=== PATIENT | male | born 1965 | race African-American/Black ===

== ENCOUNTER 2016-12-09 09:38 | Emergency (ER) | payer MEDICAID ==
[~2016-12-09 09:38] MED LIST: AMLODIPINE PO; COMPAZINE10 MG PO; CYCLOBENZAPRINE10 M1 PO; DEPRESSION MED; FLEXERIL10 MG PO; HYDROCODON-ACE1 EA16 PO; IBUPROFEN200 M3 PO; LEVAQUIN500 M1 PO; MILK OF MA400 MG/5 M PO; MIRALAX17 G1 PO; MIRALAX17 G2 PO; NAPROSYN500 M1 PO; NORCO 10/3251 TA1 PO; NORCO 5-325 TA1 EACH PO; NORCO 5/3251 TA2 PO; NORCO 5/3251 TAB PO; NORVASC10 M1 PO; NORVASC10 M2 PO; NORVASC10 MG PO; ONE DAILY MULT1 EAC2 PO; OXYCODONE/APAP PO; PEPCID40 MG PO; PERCOCET 5-3251 EACH PO; PERCOCET 5/3251 TAB PO; PRILOSEC OTC20 M1 PO; PRILOSEC40 MG PO; PROTONIX40 M2 PO; PROZAC20 M1 PO; PROZAC20 M3 PO; ROXICODONE5 M2 PO; SENOKOT-S TABL1 EACH PO; SUCRALFATE1 GM/10 ML PO; TYLENOL325 M2 PO; ULTRAM50 MG PO; VITAMIN B-1100 M3 PO; ZANTAC 7575 M1 PO; ZITHROMAX250 M1 PO; ZOFRAN ODT4 MG PO; ZOFRAN4 M2 PO
[2016-12-13] MEDS ORDERED: IBUPROFEN400 M1 PO (11:09)
[2017-05-16] MEDS ORDERED: ZOFRAN ODT4 MG PO (13:34)
== END 2016-12-09 13:00 | disposition left against medical advice (07) ==
LOC: EDMED 09:38
DX: Z53.21 Procedure and treatment not carried out due to patient leaving prior to being seen by health care provider (principal)

== ENCOUNTER 2016-12-13 12:08 | Emergency (ER) | payer MEDICAID ==
[2016-12-13 11:44] LABS: URINE BILIRUBIN NEGATIVE (NEG); URINE BLOOD NEGATIVE (NEG); URINE GLUCOSE (UA) NEGATIVE (NEG); URINE KETONE SMALL (NEG); URINE LEUKOCYTE ESTERASE POSITIVE (NEG); URINE NITRITE NEGATIVE (NEG); URINE PROTEIN SMALL (NEG); URINE SPECIFIC GRAVITY 1.025 (1.003-1.030)
[2016-12-13 11:45] LABS: URINE APPEARANCE CLEAR; URINE COLOR DARK YELLOW
[2016-12-13 11:51] LABS: URINE MUCUS 3+
[2016-12-13 11:53] LABS: URINE RBC 0-2 /[HPF] (0-5); URINE WBC 0-3 /[HPF] (0-5)
[2016-12-13 11:54] LABS: BASO % 0.5 % (0-2); EOS % 2.3 % (0-7); EOSINOPHIL ABSOLUTE COUNT 0.1 tho/cmm (0.0-0.7); HCT-HEMATOCRIT 43.5 % (36.0-53.5); HGB-HEMOGLOBIN 14.8 gm/dl (13.5-17.0); LYMPH ABSOLUTE COUNT 1.4 tho/cmm (0.8-4.5); MCH (MEAN CORPUSCULAR HGB) 30.8 pg (28.0-32.0); MCV (MEAN CELL VOLUME) 90.6 fl (82.0-96.0); MEAN PLATELET VOLUME 10.6 cmc (9.4-12.4); MONO % 9.3 % (0-12); MONOCYTE ABSOLUTE COUNT 0.4 tho/cmm (0.0-1.2); NEUTROPHIL ABSOLUTE COUNT 2.5 tho/cmm (1.6-8.0); NEUTROPHIL-AUTOMATED 2.5 tho/cmm (1.6-8.0); NEUTROPHILS % 55.9 % (40-80); PLATELET COUNT 168 tho/cmm (150-450); WHITE BLOOD COUNT 4.4 tho/cmm (4.0-10.0)
[2016-12-13 12:06] LABS: ALB/GLOB RATIO 0.9 (0.8-2.0); ALBUMIN 3.6 g/dl (3.5-5.0); ALKALINE PHOSPHATASE 75 U/L (33-138); ALT/SGPT 111 U/L (12-78); BILIRUBIN,TOTAL 0.3 mg/dl (0.0-1.5); BLOOD UREA NITROGEN 14 mg/dl (6-24); CALCIUM 8.8 mg/dl (8.5-10.5); CARBON DIOXIDE-VENOUS 31 mmol/L (22-32); CHLORIDE 109 mmol/l (96-110); CREATININE 0.95 mg/dl (0.60-1.30); GLUCOSE 141 mg/dL (70-110); LIPASE 172 U/L (73-393); SODIUM 143 mmol/L (135-145); eGFR VALUE FOR BLACK >90 mL/Min
[~2016-12-13 12:08] MED LIST changes: +IBUPROFEN400 M1 PO
[2016-12-13 12:28] LABS: ANION GAP 7 mmol/L (0-20); AST/SGOT 73 U/L (10-40); POTASSIUM 4.4 mmol/L (3.7-5.1)
[2016-12-13] MEDS ORDERED: DICYCLOMINE HCL20 M1 PO (13:17)
[2016-12-13] MEDS ORDERED: OMEPRAZOLE40 M2 PO (13:17)
[2017-05-16] MEDS ORDERED: ZOFRAN ODT4 MG PO (13:34)
== END 2016-12-13 13:33 ==
LOC: EDMED 12:08
PROVIDERS: Emergency Medicine
DX: R10.9 Unspecified abdominal pain (principal); F17.210 Nicotine dependence, cigarettes, uncomplicated
CPT/HCPCS: J0500

== ENCOUNTER 2017-01-26 09:52 | Emergency (ER) | payer MEDICAID ==
[~2017-01-26 09:52] MED LIST changes: +DICYCLOMINE HCL20 M1 PO; +OMEPRAZOLE40 M2 PO
[2017-01-26 10:36] LABS: BASO % 0.6 % (0-2); EOS % 2.6 % (0-7); EOSINOPHIL ABSOLUTE COUNT 0.1 tho/cmm (0.0-0.7); HCT-HEMATOCRIT 44.5 % (36.0-53.5); HGB-HEMOGLOBIN 15.2 gm/dl (13.5-17.0); LYMPH % 34.9 % (20-45); LYMPH ABSOLUTE COUNT 1.2 tho/cmm (0.8-4.5); MCH (MEAN CORPUSCULAR HGB) 30.3 pg (28.0-32.0); MCHC MEAN CORPUSCULAR HGB CONC 34.2 % (32.0-36.0); MCV (MEAN CELL VOLUME) 88.6 fl (82.0-96.0); MEAN PLATELET VOLUME 11.2 cmc (9.4-12.4); MONO % 7.8 % (0-12); MONOCYTE ABSOLUTE COUNT 0.3 tho/cmm (0.0-1.2); NEUTROPHIL ABSOLUTE COUNT 1.9 tho/cmm (1.6-8.0); NEUTROPHIL-AUTOMATED 1.9 tho/cmm (1.6-8.0); NEUTROPHILS % 54.1 % (40-80); PLATELET COUNT 140 tho/cmm (150-450); RED BLOOD COUNT 5.02 mil/cmm (4.40-5.70); RED CELL DISTRIBUTION WIDTH 13.6 % (12.4-16.4); WHITE BLOOD COUNT 3.4 tho/cmm (4.0-10.0)
[2017-01-26 10:59] LABS: ALB/GLOB RATIO 0.8 (0.8-2.0); ALBUMIN 3.5 g/dl (3.5-5.0); ALCOHOL (ETOH) <10 mg/dl (<10); ALKALINE PHOSPHATASE 84 U/L (33-138); ALT/SGPT 133 U/L (12-78); AMYLASE 23 U/L (20-90); BILIRUBIN,TOTAL 0.6 mg/dl (0.0-1.5); BLOOD UREA NITROGEN 15 mg/dl (6-24); CALCIUM 8.7 mg/dl (8.5-10.5); CARBON DIOXIDE-VENOUS 26 mmol/L (22-32); CHLORIDE 109 mmol/l (96-110); CREATININE 0.93 mg/dl (0.60-1.30); GLUCOSE 103 mg/dL (70-110); LIPASE 138 U/L (73-393); SODIUM 142 mmol/L (135-145); eGFR VALUE FOR BLACK >90 mL/Min
[2017-01-26 11:04] LABS: ANION GAP 12 mmol/L (0-20); AST/SGOT 139 U/L (10-40); C-REACTIVE PROTEIN <0.3 mg/dl (0-0.9); POTASSIUM 4.8 mmol/L (3.7-5.1)
[2017-01-26] MEDS ORDERED: PRILOSEC OTC20 M1 PO (11:44)
[2017-05-16] MEDS ORDERED: ZOFRAN ODT4 MG PO (13:34)
== END 2017-01-26 12:08 ==
LOC: EDMED 09:52
PROVIDERS: Emergency Medicine
DX: R10.9 Unspecified abdominal pain (principal); F25.9 Schizoaffective disorder, unspecified; F10.10 Alcohol abuse, uncomplicated; F32.9 Major depressive disorder, single episode, unspecified; R11.10 Vomiting, unspecified; I10 Essential (primary) hypertension; Z79.899 Other long term (current) drug therapy; F17.200 Nicotine dependence, unspecified, uncomplicated
CPT/HCPCS: C9113; G0480; J2270; J2405; J7030